=== PATIENT | female | born 1990 ===

== ENCOUNTER 2016-11-17 18:10 | Emergency (ER) | payer OTHER, MEDICAID ==
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
== END 2016-11-17 20:10 | disposition home or self-care (01) ==
LOC: ER 18:10
DX: S00.81XA Abrasion of other part of head, initial encounter (principal); Z23 Encounter for immunization; V43.52XA Car driver injured in collision with other type car in traffic accident, initial encounter